=== PATIENT | female | born 1980 | race Asian ===

== ENCOUNTER 2019-11-24 13:03 | Emergency (ER) | payer OTHER ==
[~2019-11-24] VITALS: Ht 152.4 cm; Wt 79.4 kg
[2019-11-24 13:09] VITALS: Ht 152.4 cm; Wt 79.4 kg
[2019-11-24 15:19] VITALS: BP 122/87
== END 2019-11-24 15:19 | disposition home or self-care (01) ==
LOC: ED 13:03
DX: F10.920 Alcohol use, unspecified with intoxication, uncomplicated (principal); F17.210 Nicotine dependence, cigarettes, uncomplicated; F14.10 Cocaine abuse, uncomplicated

== ENCOUNTER 2019-12-08 14:11 | Emergency (ER) | payer OTHER ==
[~2019-12-08] VITALS: Ht 152.4 cm; Wt 71.7 kg
[2019-12-08 14:19] VITALS: Ht 152.4 cm; Wt 71.7 kg
[2019-12-08 15:15] VITALS: BP 132/88
== END 2019-12-08 15:15 | disposition home or self-care (01) ==
LOC: ED 14:11
DX: F20.9 Schizophrenia, unspecified (principal); Z76.0 Encounter for issue of repeat prescription